=== PATIENT | female | born 1985 | race Hispanic/Latino ===

== ENCOUNTER 2019-12-14 16:38 | Emergency (ER) | payer SELFPAY ==
--- NOTE | 2019-12-14 18:35 | ER ---
Nurse's Notes [facility] Name: Elizabeth Rivas Age: 34 yrs Sex: Female : 1985 Arrival Date: 12/14/2019 Time: 16:41 Bed 2 Private MD: Diagnosis: Acute bronchitis, unspecified;Acute pharyngitis, unspecified Presentation: 12/14 16:55 Presenting complaint: Patient states: Cough, congestion, fever and chills started last ca1 night. Temp today at 101.7F. Ibuprofen taken at 1350. Transition of care: patient was not received from another setting of care. Onset of symptoms was December 14, 2019. Risk Assessment: Do you want to hurt yourself or someone else? Patient reports no desire to harm self or others. Initial Sepsis Screen: Does the patient meet any 2 criteria? No. Patient's initial sepsis screen is negative. Does the patient have a suspected source of infection? No. Patient's initial sepsis screen is negative. Care prior to arrival: None. 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 - Coronavirus screen:: The patient has NOT traveled to [place] in the past 14 days. The patient has NOT had contact with known/suspected case of Coronavirus?. - Social history:: Smoking status: Patient denies any tobacco usage or history of. - Ebola Screening: : Patient negative for fever greater than or equal to 101.5 degrees Fahrenheit, and additional compatible Ebola Virus Disease symptoms Patient denies exposure to infectious person Patient denies travel to an Ebola-affected area in the 21 days before illness onset No symptoms or risks identified at this time. Screenin:29 Abuse screen: Denies threats or abuse. Nutritional screening: No deficits noted. Tuberculosis screening: No symptoms or risk factors identified. Fall Risk None identified. Assessment: 17:25 General: Appears in no apparent distress. Behavior is calm, cooperative. General: ah Reports chills for fever for highest temp of 101.7, started last night. Pain: Denies pain. Neuro: Level of Consciousness is awake, alert, Oriented to person, place, time, situation, Global Human Resources Director are equal bilaterally. Cardiovascular: Heart tones S1 S2 present Capillary refill < 3 seconds. Respiratory: Airway is patent Respiratory effort is even, unlabored, Respiratory pattern is regular, symmetrical, Breath sounds are clear bilaterally. Respiratory: Reports cough that is productive. GI: No signs and/or symptoms were reported involving the gastrointestinal system. Abdomen is non-distended, Bowel sounds present X 4 quads. Abd is soft and non tender X 4 quads. :. EENT:. Derm: Skin is intact, is healthy with good turgor, Skin is dry. 18:18 Reassessment: Patient appears in no apparent distress at this time. Patient and/or ah family updated on plan of care and expected duration. Pain level reassessed. Patient is alert, oriented x 3, equal unlabored respirations, skin warm/dry/pink. Vital Signs: 16:57 BP 128 / 72; Pulse 110; Resp 15 S; Temp 99.5(O); Pulse Ox 98% on R/A; Weight 117.93 kg ca1 (R); Height 5 ft. 2 in. (157.48 cm) (R); 18:28 BP 138 / 82; Pulse 91; Resp 16; Temp 98.5; Pulse Ox 98% ; ah 16:57 Body Mass Index 47.55 (117.93 kg, 157.48 cm) ca1 ED Course: 16:41 Patient arrived in ED. rg4 16:55 Kayleen Copeland FNP-C [facility]. snw 16:55 Avery Willson MD is Attending Physician. snw 16:56 Triage completed. ca1 16:57 Arm band placed on right wrist. ca1 17:25 Trang Aguilera, RN is Primary Nurse. ah 17:25 Trang Aguilera, RN is Primary Nurse. 17:29 Bed in low position. Call light in reach. Adult w/ patient. ah 17:47 Strep Sent. sv 17:47 Flu Sent. sv 18:35 No provider procedures requiring assistance completed. Patient did not have IV access during this emergency room visit. Administered Medications: 18:35 Drug: Decadron 8 mg Route: PO; 18:40 Follow up: Response: Medication administered at discharge. Outcome: 18:30 Discharge ordered by . snw 18:35 Condition: good 18:35 Discharge instructions given to patient, Instructed on discharge instructions, medication usage. 18:35 Discharged to home ambulatory. 18:44 Patient left the ED. Signatures: Merry Bundy, RN RN Kayleen Copeland, REGISTRY RN-C REGISTRY RN-CsnKristal Champagne rg4 Damaris Brooke RN RN [facility] Trang Aguilera RN RN
[2019-12-14] MEDS ORDERED: dexAMETHasone 4 MG TAB ONE (18:36)
--- NOTE | 2019-12-14 18:36 | EDPHYS ---
Physician Documentation [facility] Name: Elizabeth Rivas Age: 34 yrs Sex: Female : 1985 Arrival Date: 12/14/2019 Time: 16:41 Bed 2 Private MD: ED Physician Avery Willson HPI: 12/14 17:45 This 34 yrs old Female presents to ER via Ambulatory with complaints of Flu snw Symptoms. 17:45 Onset: The symptoms/episode began/occurred suddenly, last night. Associated signs and snw symptoms: Pertinent positives: congestion, cough, fever, nasal discharge, sore throat. Modifying factors: The patient symptoms are alleviated by nothing. The patient has not experienced similar symptoms in the past, but family has similar symptoms, sister, nephew. It is unknown whether or not the patient has recently seen a physician. 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 - Coronavirus screen:: The patient has NOT traveled to [place] in the past 14 days. The patient has NOT had contact with known/suspected case of Coronavirus?. - Social history:: Smoking status: Patient denies any tobacco usage or history of. - Ebola Screening: : Patient negative for fever greater than or equal to 101.5 degrees Fahrenheit, and additional compatible Ebola Virus Disease symptoms Patient denies exposure to infectious person Patient denies travel to an Ebola-affected area in the 21 days before illness onset No symptoms or risks identified at this time. ROS: 17:43 Eyes: Negative for injury, pain, redness, and discharge. snw 17:43 Neck: Negative for injury, pain, and swelling, Cardiovascular: Negative for chest pain, palpitations, and edema. 17:43 Abdomen/GI: Negative for abdominal pain, nausea, vomiting, diarrhea, and constipation, Back: Negative for injury and pain, : Negative for injury, bleeding, discharge, and swelling, MS/Extremity: Negative for injury and deformity, Skin: Negative for injury, rash, and discoloration, Neuro: Negative for headache, weakness, numbness, tingling, and seizure, Psych: Negative for depression, anxiety, suicide ideation, homicidal ideation, and hallucinations. 17:43 Constitutional: Positive for body aches, fever, malaise. 17:43 ENT: Positive for nasal discharge, sore throat. 17:43 Respiratory: Positive for cough. Exam: 17:43 Constitutional: This is a well developed, well nourished patient who is awake, alert, snw and in no acute distress. Head/Face: Normocephalic, atraumatic. Eyes: Pupils equal round and reactive to light, extra-ocular motions intact. Lids and lashes normal. Conjunctiva and sclera are non-icteric and not injected. Cornea within normal limits. Periorbital areas with no swelling, redness, or edema. ENT: Nares patent. No nasal discharge, no septal abnormalities noted. Tympanic membranes are normal (mild erythema to right) and external auditory canals are clear. Oropharynx with no redness, swelling, or masses, exudates, or evidence of obstruction, uvula midline. Mucous membranes moist. Neck: Trachea midline, no thyromegaly or masses palpated, and no cervical lymphadenopathy. Supple, full range of motion without nuchal rigidity, or vertebral point tenderness. No Meningismus. Chest/axilla: Normal chest wall appearance and motion. Nontender with no deformity. No lesions are appreciated. Cardiovascular: Regular rate and rhythm with a normal S1 and S2. No gallops, murmurs, or rubs. Normal PMI, no JVD. No pulse deficits. Respiratory: Lungs have equal breath sounds bilaterally, clear to auscultation and percussion. No rales, rhonchi or wheezes noted. No increased work of breathing, no retractions or nasal flaring. Abdomen/GI: Soft, non-tender, with normal bowel sounds. No distension or tympany. No guarding or rebound. No evidence of tenderness throughout. Back: No spinal tenderness. No costovertebral tenderness. Full range of motion. Skin: Warm, dry with normal turgor. Normal color with no rashes, no lesions, and no evidence of cellulitis. MS/ Extremity: Pulses equal, no cyanosis. Neurovascular intact. Full, normal range of motion. Neuro: Awake and alert, GCS 15, oriented to person, place, time, and situation. Cranial nerves II-XII grossly intact. Motor strength 5/5 in all extremities. Sensory grossly intact. Cerebellar exam normal. Normal gait. Psych: Awake, alert, with orientation to person, place and time. Behavior, mood, and affect are within normal limits. Vital Signs: 16:57 BP 128 / 72; Pulse 110; Resp 15 S; Temp 99.5(O); Pulse Ox 98% on R/A; Weight 117.93 kg ca1 (R); Height 5 ft. 2 in. (157.48 cm) (R); 18:28 BP 138 / 82; Pulse 91; Resp 16; Temp 98.5; Pulse Ox 98% ; ah 16:57 Body Mass Index 47.55 (117.93 kg, 157.48 cm) ca1 MDM: 17:20 Patient medically screened. snw 18:32 Data reviewed: vital signs, nurses notes. Data interpreted: Pulse oximetry: on room air snw is 98 %. Interpretation: normal. Counseling: I had a detailed discussion with the patient and/or guardian regarding: the historical points, exam findings, and any diagnostic results supporting the discharge/admit diagnosis, lab results, the need for outpatient follow up, to return to the emergency department if symptoms worsen or persist or if there are any questions or concerns that arise at home. Special discussion: Based on the history and exam findings, there is no indication for further emergent testing or inpatient evaluation. I discussed with the patient/guardian the need to see the primary care provider for further evaluation of the symptoms. 12/14 16:58 Order name: Flu ca1 12/14 16:58 Order name: Strep ca1 Administered Medications: 18:35 Drug: Decadron 8 mg Route: PO; 18:40 Follow up: Response: Medication administered at discharge. Disposition: 12/15 07:04 Co-signature as Attending Physician, Avery Willson MD. rn Disposition: 12/14/19 18:30 Discharged to Home. Impression: Acute bronchitis, unspecified, Acute pharyngitis, unspecified. - Condition is Stable. - Discharge Instructions: Acute Bronchitis, Adult, Hypertension, Pharyngitis, Rehydration, Adult. - Prescriptions for Zyrtec 10 mg Oral Tablet - take 1 tablet by ORAL route once daily As needed; 20 tablet. Tessalon Perles 100 mg Oral Capsule - take 1 capsule by ORAL route every 8 hours As needed; 15 capsule. - Work release form, Medication Reconciliation Form, Thank You Letter, Antibiotic Education, Prescription Opioid Use form. - Follow up: Emergency Department; When: As needed; Reason: Worsening of condition. Follow up: Private Physician; When: 2 - 3 days; Reason: Recheck today's complaints, Continuance of care, Re-evaluation by your physician. Signatures: Dispatcher [employer] EDNM Kayleen Copeland, KESHAWN-Doug AGRICULTURE ENGINEER-Csnw Avery Willson MD MD rn Actimothy, Damaris RN RN [facility] Trang Aguilera RN RN Corrections: (The following items were deleted from the chart) 12/14 18:44 18:30 12/14/2019 18:30 Discharged to Home. Impression: Acute bronchitis, unspecified; ah Acute pharyngitis, unspecified. Condition is Stable. Forms are Medication Reconciliation Form, Thank You Letter, Antibiotic Education, Prescription Opioid Use. Follow up: Emergency Department; When: As needed; Reason: Worsening of condition. Follow up: Private Physician; When: 2 - 3 days; Reason: Recheck today's complaints, Continuance of care, Re-evaluation by your physician. snw
[2019-12-14 19:19] VITALS: O2SAT 98
[2019-12-14 19:20] VITALS: BP 138/82; TEMP 98.5
== END 2019-12-14 18:44 | disposition home or self-care (01) ==
LOC: ER 16:38
DX: J20.9 Acute bronchitis, unspecified (principal); J02.9 Acute pharyngitis, unspecified
CPT/HCPCS: 87070; 87081; 87804; 99283; J8540

== ENCOUNTER 2020-12-23 11:44 | Emergency (ER) | payer SELFPAY ==
--- OUTSIDE RECORDS SUMMARY | 2020-12-23 11:47 | XMS REPORT | Continuity of Care Document ---
:1985 Author Organization [facility] t Address [address] [place] [address] Care Team Providers Name Role Phone Romaine STEWARD, Azeb Attending Clinician Unavailable Singer YEH Attending Clinician Problems This patient has no known problems. Allergies, Adverse Reactions, Alerts This patient has no known allergies or adverse reactions. Medications This patient has no known medications. Procedures This patient has no known procedures. Encounters Start End Encounter Admission Attending Care Care Encounter Source Date/Time Date/Time Type Type Clinicians Facility Department ID 2020-12-07 2020-12-07 Telephone PARAS Gavin [id number] 00:00:00 00:00:00 Isabelle PAINTING [id number] [facility] [id number] 2020-12-06 2020-12-06 Emergency FIORELLA Cole [id number] 08:57:00 09:56:00 Damon Gomez [id number] [place] [id number] [place] [id number] Results This patient has no known results.
[2020-12-23] MEDS ORDERED: KETOROLAC 30 MG/ML INJ ONE (12:34)
[2020-12-23] MEDS ORDERED: DIPHENHYDRAMINE 50 MG/ML VIAL ONE (12:34)
[2020-12-23] MEDS ORDERED: METOCLOPRAMIDE 10 MG/2mL INJ ONE (12:34)
[2020-12-23] MEDS ORDERED: NA CHLORIDE 0.9% 1,000 ML ONE (12:34)
--- NOTE | 2020-12-23 13:04 | RAD REPORT ---
EXAM DESCRIPTION: CT - Head Brain Wo Cont - 12/23/2020 12:57 pm CLINICAL HISTORY: HEADACHE Headache, drowsiness, nausea. COMPARISON: No comparisons TECHNIQUE: All CT scans are performed using dose optimization technique as appropriate and may inclu de automated exposure control or mA/KV adjustment according to patient size. FINDINGS: No intracranial hemorrhage, hydrocephalus or extra-axial fluid collection.No areas of brai n edema or evidence of midline shift. Left frontal and ethmoid air cells are opacified compatible with chronic left frontoethmoidal sinus d isease. The paranasal sinuses and mastoids are otherwise clear. The calvarium is intact. IMPRESSION: No acute intracranial abnormality. Chronic left frontoethmoidal sinus disease.
--- NOTE | 2020-12-23 13:56 | EDPHYS ---
Physician Documentation [facility] Name: Elizabeth Rivas Age: 35 yrs Sex: Female : 1985 Arrival Date: 12/23/2020 Time: 11:48 Bed 6 Private MD: ED Physician Addison Boyce HPI: 12/23 12:45 This 35 yrs old Female presents to ER via Ambulatory with complaints of pm1 Headache. 12:45 The patient complains of pain to the forehead - left side. The patient describes the pm1 headache as aching. Onset: The symptoms/episode began/occurred this morning. Associated signs and symptoms: The patient has no apparent associated signs or symptoms, Pertinent positives: nausea, vomiting, Pertinent negatives: fever. Severity of symptoms: in the emergency department the pain has improved, initially 10/10 pain, a " 7" out of "10". Headache History: Denies prior headaches. The symptoms are alleviated by over the counter pain medication, OTC NSAIDS. The patient has not experienced similar symptoms in the past. The patient has been recently seen by a physician: dental extraction on right lower molar 3 days ago. Currently taking amoxicillin. Historical: - Allergies: 11:56 No Known Allergies; hb - Home Meds: 11:56 None [Active]; hb - PMHx: 11:56 Asthma; hb - PSHx: 11:56 Cholecystectomy; ; hb - Immunization history:: Adult Immunizations up to date. - Social history:: Smoking status: Patient denies any tobacco usage or history of. ROS: 12:45 Constitutional: Negative for fever, chills, and weight loss. pm1 12:45 Cardiovascular: Negative for chest pain, palpitations, and edema, Respiratory: Negative for shortness of breath, cough, wheezing, and pleuritic chest pain. 12:45 Back: Negative for injury and pain, MS/Extremity: Negative for injury and deformity, Skin: Negative for injury, rash, and discoloration. 12:45 ENT: Positive for dental pain, post dental extraction. Left eye tearing with headache, Negative for drainage from ear(s), ear pain. 12:45 Abdomen/GI: Positive for nausea and vomiting, Negative for abdominal pain, diarrhea, constipation. 12:45 Neuro: Positive for headache, Negative for numbness, tingling, weakness. Exam: 12:45 Constitutional: This is a well developed, well nourished patient who is awake, alert, pm1 and in no acute distress. 12:45 Eyes: Pupils equal round and reactive to light, extra-ocular motions intact. Lids and lashes normal. Conjunctiva and sclera are non-icteric and not injected. Cornea within normal limits. Periorbital areas with no swelling, redness, or edema. Neck: Trachea midline, no thyromegaly or masses palpated, and no cervical lymphadenopathy. Supple, full range of motion without nuchal rigidity, or vertebral point tenderness. No Meningismus. 12:45 Back: No spinal tenderness. No costovertebral tenderness. Full range of motion. Skin: Warm, dry with normal turgor. Normal color with no rashes, no lesions, and no evidence of cellulitis. MS/ Extremity: Pulses equal, no cyanosis. Neurovascular intact. Full, normal range of motion. 12:45 Head/face: Sinus tenderness, that is mild, is located over the left frontal sinus. 12:45 ENT: External ear(s): are unremarkable, Ear canal(s): are normal, TM's: are normal, Posterior pharynx: is normal, airway is patent, no erythema, no exudate, no peritonsilar mass, no pooling of secretions, no swelling, Dental exam: no dry socket present to left lower molar extraction. No gum swelling, no bleeding. 12:45 Cardiovascular: Exam negative for acute changes, Rate: normal, Rhythm: regular, Pulses: no pulse deficits are appreciated. 12:45 Respiratory: Exam negative for acute changes, respiratory distress, shortness of breath. 12:45 Neuro: Exam negative for acute changes, Orientation: is normal, Mentation: is normal, Motor: is normal, Gait: is steady. Vital Signs: 11:54 BP 154 / 87; Pulse 64; Resp 16; Temp 98.3; Pulse Ox 100% on R/A; Weight 117.93 kg; hb Height 5 ft. 2 in. (157.48 cm); Pain 8/10; 14:00 BP 142 / 82; Pulse 66; Resp 15; Pulse Ox 99% on R/A; hb 11:54 Body Mass Index 47.55 (117.93 kg, 157.48 cm) hb MDM: 11:59 Patient medically screened. paul 13:54 Data reviewed: vital signs. Data interpreted: Pulse oximetry: on room air is 100 %. pm1 Interpretation: normal. 13:54 Counseling: I had a detailed discussion with the patient and/or guardian regarding: the pm1 historical points, exam findings, and any diagnostic results supporting the discharge/admit diagnosis, radiology results, the need for outpatient follow up, an ENT specialist, evaluation and treatment of chronic sinusitis, to return to the emergency department if symptoms worsen or persist or if there are any questions or concerns that arise at home. 13:54 ED course: Patient's pain 4/10 with treatment in the ER and she is happy with the care pm1 received and is ready to go home. Patient is currently on day 3 of her amoxicillin from tooth extraction. Explained to patient to follow up with ENT and continue current abx therapy. 12/23 13:27 Order name: Urine Dipstick--Ancillary (enter results) 12/23 13:27 Order name: Urine --Ancillary (enter results) 12/23 12:12 Order name: CT Head Brain wo Cont; Complete Time: 13:09 pm1 12/23 12:12 Order name: IV Saline Lock; Complete Time: 12:22 pm1 12/23 13:02 Order name: Urine Test (obtain specimen); Complete Time: 13:15 pm1 12/23 13:02 Order name: Urine Dipstick-Ancillary (obtain specimen); Complete Time: 13:15 pm1 Administered Medications: 12:22 Drug: TORadol - Ketorolac 15 mg Route: IVP; Site: right antecubital; hb 13:02 Follow up: Response: No adverse reaction ph 12:22 Drug: NS 0.9% 1000 ml Route: IV; Rate: 1000 ml; Site: right antecubital; hb 13:34 Follow up: Response: No adverse reaction; IV Status: Completed infusion; IV Intake: hb 1000ml 12:23 Drug: Reglan 10 mg Route: IVP; Site: right antecubital; hb 13:03 Follow up: Response: No adverse reaction ph 12:23 Drug: Benadryl 25 mg Route: IVP; Site: right antecubital; hb 13:02 Follow up: Response: No adverse reaction ph Disposition: 12/23/20 13:55 Discharged to Home. Impression: Headache, Chronic frontal sinusitis. - Condition is Stable. - Discharge Instructions: General Headache Without Cause, Sinus Headache. - Prescriptions for Zofran ODT 4 mg Oral tablet,disintegrating - place 1 tablet by TRANSLINGUAL route every 8 hours As needed; 20 tablet. Fiorinal 50- 325-40 mg Oral Capsule - take 1 capsule by ORAL route every 4 hours As needed - not to exceed 6 capsules per day; 20 capsule. - Medication Reconciliation Form, Thank You Letter, Antibiotic Education, Prescription Opioid Use form. - Follow up: Emergency Department; When: As needed; Reason: Worsening of condition. Follow up: Private Physician; When: 2 - 3 days; Reason: Recheck today's complaints, Continuance of care, Re-evaluation by your physician. - Problem is new. - Symptoms have improved. Addendum: 12/25/2020 06:09 Co-signature as Attending Physician, Addison Boyce MD I agree with the assessment and c ledesma plan of care. Signatures: Dispatcher [employer] EDAK Addison Boyce MD MD cha Marinas, Patrick, BHAVYA BUSINESS BANKING MANAGER pm1 Esthela Canseco, BIN RN Kaitlin Vance RN ph Corrections: (The following items were deleted from the chart) 12/23 14:22 13:55 12/23/2020 13:55 Discharged to Home. Impression: Headache; Chronic frontal hb sinusitis. Condition is Stable. Forms are Medication Reconciliation Form, Thank You Letter, Antibiotic Education, Prescription Opioid Use. Follow up: Emergency Department; When: As needed; Reason: Worsening of condition. Follow up: Private Physician; When: 2 - 3 days; Reason: Recheck today's complaints, Continuance of care, Re-evaluation by your physician. Problem is new. Symptoms have improved. pm1
--- NOTE | 2020-12-23 13:56 | ER ---
Nurse's Notes [facility] Name: Elizabeth Rivas Age: 35 yrs Sex: Female : 1985 Arrival Date: 12/23/2020 Time: 11:48 Bed 6 Private MD: Diagnosis: Headache;Chronic frontal sinusitis Presentation: 12/23 11:54 Chief complaint: Frontal headache and nausea upon waking today. On amoxicillin day 3 hb for teeth. Coronavirus screen: Client presents with at least one sign or symptom that may indicate coronavirus-19. Provider contacted for isolation considerations. Ebola Screen: No symptoms or risks identified at this time. Initial Sepsis Screen: Does the patient meet any 2 criteria? No. Patient's initial sepsis screen is negative. Does the patient have a suspected source of infection? No. Patient's initial sepsis screen is negative. Risk Assessment: Do you want to hurt yourself or someone else? Patient reports no desire to harm self or others. Onset of symptoms was December 23, 2020. Care prior to arrival: Medication(s) given: Motrin. 11:54 Method Of Arrival: Ambulatory hb 11:54 Acuity: MARGARITA 3 hb Triage Assessment: 11:56 Headache History: Denies prior headaches. General: Appears in no apparent distress. hb Behavior is calm, cooperative. Pain: Pain currently is 8 out of 10 on a pain scale. EENT: No signs and/or symptoms were reported regarding the EENT system. Neuro: Level of Consciousness is awake, alert, obeys commands, Oriented to person, place, time, situation, Reports headache. Cardiovascular: Capillary refill < 3 seconds Patient's skin is warm and dry. Respiratory: Respiratory effort is even, unlabored, Respiratory pattern is regular, symmetrical. GI: Reports nausea. : No signs and/or symptoms were reported regarding the genitourinary system. Derm: Skin is pink, warm \T\ dry. Musculoskeletal: No signs and/or symptoms reported regarding the musculoskeletal system. Historical: - Allergies: 11:56 No Known Allergies; hb - Home Meds: 11:56 None [Active]; hb - PMHx: 11:56 Asthma; hb - PSHx: 11:56 Cholecystectomy; ; hb - Immunization history:: Adult Immunizations up to date. - Social history:: Smoking status: Patient denies any tobacco usage or history of. Screenin:57 Abuse screen: Denies threats or abuse. Denies injuries from another. Nutritional hb screening: No deficits noted. Tuberculosis screening: No symptoms or risk factors identified. Fall Risk None identified. Assessment: 11:57 General: see triage assessment . hb 13:09 Reassessment: Patient appears in no apparent distress at this time. Patient and/or hb family updated on plan of care and expected duration. Pain level reassessed. Patient is alert, oriented x 3, equal unlabored respirations, skin warm/dry/pink. 14:10 Reassessment: Patient appears in no apparent distress at this time. Patient and/or hb family updated on plan of care and expected duration. Pain level reassessed. Patient is alert, oriented x 3, equal unlabored respirations, skin warm/dry/pink. Patient states feeling better. Patient states symptoms have improved. Vital Signs: 11:54 BP 154 / 87; Pulse 64; Resp 16; Temp 98.3; Pulse Ox 100% on R/A; Weight 117.93 kg; hb Height 5 ft. 2 in. (157.48 cm); Pain 8/10; 14:00 BP 142 / 82; Pulse 66; Resp 15; Pulse Ox 99% on R/A; hb 11:54 Body Mass Index 47.55 (117.93 kg, 157.48 cm) hb ED Course: 11:48 Patient arrived in ED. mr 11:54 Esthela Canseco, RN is Primary Nurse. hb 11:56 Triage completed. hb 11:57 Alex Dallas, BHAVYA is PHCP. pm1 11:57 Addison Boyce MD is Attending Physician. pm1 11:57 Arm band placed on. hb 11:57 Patient has correct armband on for positive identification. Bed in low position. Call hb light in reach. Side rails up X 1. 12:18 Inserted saline lock: 20 gauge in right antecubital area, using aseptic technique. dh3 12:57 CT Head Brain wo Cont In Process Unspecified. EDMS 14:22 No provider procedures requiring assistance completed. IV discontinued, intact, hb bleeding controlled, No redness/swelling at site. Administered Medications: 12:22 Drug: TORadol - Ketorolac 15 mg Route: IVP; Site: right antecubital; hb 13:02 Follow up: Response: No adverse reaction ph 12:22 Drug: NS 0.9% 1000 ml Route: IV; Rate: 1000 ml; Site: right antecubital; hb 13:34 Follow up: Response: No adverse reaction; IV Status: Completed infusion; IV Intake: hb 1000ml 12:23 Drug: Reglan 10 mg Route: IVP; Site: right antecubital; hb 13:03 Follow up: Response: No adverse reaction ph 12:23 Drug: Benadryl 25 mg Route: IVP; Site: right antecubital; hb 13:02 Follow up: Response: No adverse reaction ph Intake: 13:34 IV: 1000ml; Total: 1000ml. hb Outcome: 13:55 Discharge ordered by MD. pm1 14:22 Discharged to home ambulatory. hb 14:22 Condition: stable 14:22 Discharge instructions given to patient, Instructed on discharge instructions, follow up and referral plans. medication usage, Demonstrated understanding of instructions, follow-up care, medications, Prescriptions given X 2. 14:22 Patient left the ED. Signatures: Dispatcher [employer] Renita Baires Patricia RN RN Alex Steel, BHAVYA BUTCHER pm1 Esthela Canseco RN RN Elsie Pinedo 3
[2020-12-23 14:28] VITALS: TEMP 98.3
[2020-12-23 14:30] VITALS: BP 142/82; O2SAT 99
[2020-12-23 16:45] LABS: Urine Blood TRACE (NEG); Urine Glucose NEGATIVE (NEG); Urine Protein NEGATIVE (NEG); Urine Specific Gravity 1.015 (1.005-1.030); Urine pH 6.5 (5.0-7.0)
== END 2020-12-23 14:22 | disposition home or self-care (01) ==
LOC: ER 11:44
DX: J32.1 Chronic frontal sinusitis (principal); Z98.890 Other specified postprocedural states
CPT/HCPCS: 70450; 81003; 81025; 96361; 96374; 96375; 99284; J1200; J2765; J7030

== ENCOUNTER 2022-11-28 19:45 | Emergency (ER) | payer SELFPAY ==
--- OUTSIDE RECORDS SUMMARY | 2022-11-28 19:49 | XMS REPORT | Continuity of Care Document ---
:1985 Author Organization [facility] t Address [address] [place] [address] Care Team Providers Name Role Phone Romaine STEWARD, Isabelle Bowie Attending Clinician Unavailable Damon Cole DO Attending Clinician Payers Payer Name Policy Type Policy Number Effective Date Expiration Date S ource Problems Condition Condition Condition Status Onset Resolution Last Treating Co mments Source Name Details Category Date Date Treatment Clinician Date Acute Acute Disease Active 2014-10 [facility] post-opera post-opera 0-23 [place] [facility] Abdominal Abdominal Disease Active 2014-10 Uni vers pain, pain, 0-21 [place] abdominal abdominal Bran ch location location Acute Acute Disease Active 2014-10 [facility] calculous calculous 0-21 [place] of cholecy[place]olecysti [place] [facility] Allergies, Adverse Reactions, Alerts Allergy Allergy Status Severity Reaction(s) Onset Inactive Treating Comm ents Source Name Type Date Date Clinician NO KNOWN Drug Active Univers ALLERGIE Class ity of S [place] [facility] Social History Social Habit Start Date Stop Date Quantity Comments Source Sex Assigned At [facility] Branch Exposure to Not sure [facility] SARS-CoV-2 (event) Medica l Branch Alcohol intake 2015-08-29 2015-08-29 [facility] 00:00:00 00:00:00 [facility] Smoking Status Start Date Stop Date Source Former smoker 2015-08-29 00:00:00 2015-08-29 00:00:00 [facility] [place] [facility] Medications Ordered Filled Start Stop Current Ordering Indication Dosage Frequency Signature Comments Components Source Medication Medication Date Date Medication? Clinician (SIG) Name Name benzonatate Yes [id number] 100mg Take 1 Univers 100 mg 2-10 capsule by ity of capsule 00:00: mouth 3 [place] 00 (three) Medical times Branch daily as needed for Cough. chlorphenir Yes [id number] 4mg Take 1 Univers amine 4 mg 2-10 tablet by ity of tablet 00:00: mouth [place] 00 every 6 Medical (six) Branch hours as needed for Allergies or Runny nose. multivitami Yes [id number] 1{capsu Take 1 Univers n capsule 2-10 le} capsule by ity of 00:00: mouth [place] 00 daily. Medical Branch calcium-mag Yes [id number] Take as Univers nesium-zinc 2-10 directed ity of 333-133-8.3 00:00: for daily [place] mg Tab 00 dose. Medical Branch benzonatate Yes [id number] 100mg Take 1 Univers 100 mg 2-10 capsule by ity of capsule 00:00: mouth 3 [place] 00 (three) Medical times Branch daily as needed for Cough. chlorphenir Yes [id number] 4mg Take 1 Univers amine 4 mg 2-10 tablet by ity of tablet 00:00: mouth [place] 00 every 6 Medical (six) Branch hours as needed for Allergies or Runny nose. multivitami Yes [id number] 1{capsu Take 1 Univers n capsule 2-10 le} capsule by ity of 00:00: mouth [place] 00 daily. Medical Branch calcium-mag Yes [id number] Take as Univers nesium-zinc 2-10 directed ity of 333-133-8.3 00:00: for daily [place] mg Tab 00 dose. Medical Branch cyclobenzap 2014-10 Yes 10mg Take 10 mg Univers rine 1-03 by mouth 3 ity of (FLEXERIL) 14:52: (three) [place] 10 mg 59 times Medical tablet daily. Branch cyclobenzap 2014-10 Yes 10mg Take 10 mg Univers rine 1-03 by mouth 3 ity of (FLEXERIL) 14:52: (three[place] 10 mg 59 times Medical tablet daily. Branch acetaminoph 2014-10 Yes 1{tbl} Take 1 Tab Univers en-codeine 0-24 by mouth ity o f (TYLENOL 00:00: every 4 [place] #3) 300-30 00 (four) Medical mg tablet hours as Branch needed for Pain (scale 4-6) or Pain (scale 7-10). ibuprofen 2014-10 Yes 800mg Take 1 Tab U nivers (MOTRIN) 0-24 by mouth ity of 800 mg 00:00: every 6 [place] tablet 00 (six) Medical hours as Branch needed for Pain (scale 1-3) or Pain (scale 4-6). acetaminoph 2014-10 Yes 1{tbl} Take 1 Tab Univers en-codeine 0-24 by mouth ity o f (TYLENOL 00:00: every 4 [place] #3) 300-30 00 (four) Medical mg tablet hours as Branch needed for Pain (scale 4-6) or Pain (scale 7-10). ibuprofen 2014-10 Yes 800mg Take 1 Tab U nivers (MOTRIN) 0-24 by mouth ity of 800 mg 00:00: every 6 [place] tablet 00 (six) Medical hours as Branch needed for Pain (scale 1-3) or Pain (scale 4-6). omeprazole 2014-10 Yes 40mg Take 1 Cap U nivers (PRILOSEC) 0-21 by mouth ity o f 40 mg 00:00: daily. [place] capsule 00 Medical Branch ondansetron 2014-10 Yes 4mg Take 1 Tab Univers (ZOFRAN, 0-21 by mouth ity of HYDROCHLORI 00:00: every 8 [place] as [place],) 4 mg 00 (eight) Medical tablet hours as Branch needed for Nausea and Vomiting (N/V). omeprazole 2014-10 Yes 40mg Take 1 Cap U nivers (PRILOSEC) 0-21 by mouth ity o f 40 mg 00:00: daily. [place] capsule Medical Branch ondansetron 2014-10 Yes 4mg Take 1 Tab Univers (ZOFRAN, 0-21 by mouth ity of HYDROCHLORI 00:00: every 8 [place] as [place],) 4 mg 00 (eight) Medical tablet hours as Branch needed for Nausea and Vomiting (N/V). Vital Signs Vital Name Observation Time Observation Value Comments Source Systolic blood 2020-12-06 14:56:00 131 mm[Hg] Univer sity of pressure [place] [facility] Diastolic blood 2020-12-06 14:56:00 79 mm[Hg] Unive rsity of pressure [place] [facility] Heart rate 2020-12-06 14:56:00 85 /min [facility] [place] [facility] Body temperature 2020-12-06 14:56:00 36.67 Caitlin Univ ersity of [place] [facility] Respiratory rate 2020-12-06 14:56:00 14 /min Univ ers[facility] [place] [facility] Body height 2020-12-06 14:56:00 157.5 cm [facility] [place] [facility] Body weight 2020-12-06 14:56:00 122.471 kg [facility] [place] [facility] BMI 2020-12-06 14:56:00 49.38 kg/m2 [facility] [place] [facility] Oxygen saturation in 2020-12-06 14:56:00 100 /min University of Arterial blood by [place] [employer] lalo Pulse oximetry Branch Systolic blood 2020-12-06 14:56:00 131 mm[Hg] Univer sity of pressure [place] [facility] Diastolic blood 2020-12-06 14:56:00 79 mm[Hg] Unive rsity of pressure [place] [facility] Heart rate 2020-12-06 14:56:00 85 /min [facility] [place] [facility] Body temperature 2020-12-06 14:56:00 36.67 Caitlin Univ ers[facility] [place] [facility] Respiratory rate 2020-12-06 14:56:00 14 /min Univ ers[facility] [place] [facility] Body height 2020-12-06 14:56:00 157.5 cm [facility] [place] [facility] Body weight 2020-12-06 14:56:00 122.471 kg [facility] [place] [facility] BMI 2020-12-06 14:56:00 49.38 kg/m2 [facility] [place] [facility] Oxygen saturation in 2020-12-06 14:56:00 100 /min University of Arterial blood by [place] [employer] lalo Pulse oximetry Branch Procedures Procedure Date / Time Performed Performing Clinician [facility] e NOTICE OF PRIVACY 2020-12-06 14:48:27 [facility] Unassigned, [facility] Branch CONSENT/REFUSAL FOR 2020-12-06 14:47:29 [facility] Un[facility], [facility] AND Name Medical Branch TREATMENT Encounters Start End Encounter Admission Attending Care Care Encounter Source Date/Time Date/Time Type Type Clinicians Facility Department ID 2020-12-07 2020-12-07 Telephone PARAS Gavin [id number] Univers 00:00:00 00:00:00 Isabelle PAINTING [id number] i ty of [facility] [id number] [place] [id number] [place] 019 Branch 2020-12-07 2020-12-07 Telephone PARAS Gavin [id number] 00:00:00 00:00:00 Isabelle PAINTING [id number] 2020-12-06 2020-12-06 Emergency Cole, [facility] [id number] 08:57:00 09:56:00 Damon Gomez [id number] [place] [id number] [place] [id number] 08 2020-12-06 2020-12-06 Emergency Cole, [facility] [id number] [facility] 08:57:00 09:56:00 Damon Gomez [id number] i ty of [place] [id number] [facility] [id number] [place] [id number] [place] 2020-12-06 2020-12-[address] [facility] ERT [id number] Univers 08:48:00 08:48:00 ity of [place] [facility] Results This patient has no known results.
[2022-11-28] MEDS ORDERED: MAGNES/ALUMIN/SIMET 30ML UCUP ONE (20:35)
[2022-11-28] MEDS ORDERED: LIDOCAINE VISCOUS 2% SOLN 15 ML UDC ONE (20:35)
[2022-11-28 20:42] LABS: Absolute Lymphocytes (CBC) 3.4 K/uL (0.7-4.9); Hematocrit 34.4 % (36.0-45.0); Lymphocytes % 33.1 % (15.3-44.8); MCV 81.2 fL (80-100); MPV 8.2 fL (7.6-11.3); RBC Red Blood Cell Count 4.24 M/uL (3.86-4.86)
[2022-11-28 21:07] LABS: ALT/SGPT 22 U/L (13-56); AST/SGOT 18 U/L (15-37); Albumin 3.5 g/dL (3.4-5.0); Alkaline Phosphatase 90 U/L (45-117); BUN Blood Urea Nitrogen 15 mg/dL (7-18); Bicarbonate 27 mmol/L (21-32); Bilirubin Total 0.1 mg/dL (0.2-1.0); Glomerular Filtration Rate 97 ml/min (=/>90); Glucose Level 114 mg/dL (74-106); Lipase 138 U/L (73-393); Potassium 3.7 mmol/L (3.5-5.1); Protein, Total 8.4 g/dL (6.4-8.2); Sodium Level 137 mmol/L (136-145)
[2022-11-28 21:36] LABS: Troponin High Sensitivity < 3.0 pg/mL (<58.9)
--- NOTE | 2022-11-28 21:58 | EDPHYS ---
Physician Documentation [facility] Name: Elizabeth Rivas Age: 37 yrs Sex: Female : 1985 Arrival Date: 11/28/2022 Time: 19:47 Bed 16 Private MD: ED Physician Jaiden Barraza HPI: 11/28 23:46 This 37 yrs old Female presents to ER via Ambulatory with complaints of Chest rt Pain. 23:46 Patient presents to the ED with 3 days of epigastric to chest pain that occurs only rt when she eats or drinks. She states that she has tried reflux medications that have not improved her symptoms. She denies other acute complaints at this time. Denies shortness of breath, near syncope. Symptoms are moderate in severity, no other aggravating or elevating factors.. 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 - Social history:: Smoking status: Patient denies any tobacco usage or history of. - Family history:: not pertinent. ROS: 11/29 00:20 Constitutional: Negative for fever, chills, and weight loss, Respiratory: Negative for rt shortness of breath, cough, wheezing, and pleuritic chest pain, Abdomen/GI: Negative for abdominal pain, nausea, vomiting, diarrhea, and constipation, Skin: Negative for injury, rash, and discoloration, Neuro: Negative for headache, weakness, numbness, tingling, and seizure, Psych: Negative for depression, anxiety, suicide ideation, homicidal ideation, and hallucinations. Cardiovascular: Positive for chest pain, Negative for edema. Exam: 00:20 Constitutional: This is a well developed, well nourished patient who is awake, alert, rt and in no acute distress. Head/Face: Normocephalic, atraumatic. Chest/axilla: Normal chest wall appearance and motion. Nontender with no deformity. No lesions are appreciated. Cardiovascular: Regular rate and rhythm with a normal S1 and S2. No gallops, murmurs, or rubs. Normal PMI, no JVD. No pulse deficits. Respiratory: Lungs have equal breath sounds bilaterally, clear to auscultation and percussion. No rales, rhonchi or wheezes noted. No increased work of breathing, no retractions or nasal flaring. Abdomen/GI: Soft, non-tender, with normal bowel sounds. No distension or tympany. No guarding or rebound. No evidence of tenderness throughout. Skin: Warm, dry with normal turgor. Normal color with no rashes, no lesions, and no evidence of cellulitis. MS/ Extremity: Pulses equal, no cyanosis. Neurovascular intact. Full, normal range of motion. Neuro: Awake and alert, GCS 15, oriented to person, place, time, and situation. Cranial nerves II-XII grossly intact. Motor strength 5/5 in all extremities. Sensory grossly intact. Cerebellar exam normal. Normal gait. Psych: Awake, alert, with orientation to person, place and time. Behavior, mood, and affect are within normal limits. 00:20 ECG was reviewed by the Attending Physician. 00:20 Abdomen/GI: Minimal epigastric tenderness without rebound, guarding, distention. Vital Signs: 11/28 19:49 BP 123 / 56; Pulse 72; Resp 16; Temp 98; Pulse Ox 100% on R/A; Weight 117.93 kg; Height kd3 5 ft. 2 in. (157.48 cm); Pain 8/10; 21:45 BP 108 / 56; Pulse 85; Resp 16; Pulse Ox 100% on R/A; jb4 19:49 Body Mass Index 47.55 (117.93 kg, 157.48 cm) kd3 MDM: 20:20 Patient medically screened. rt 11/29 00:20 Differential diagnosis: acute myocardial infarction, gastroesophageal reflux disease rt (GERD), pancreatitis, pneumonia, pneumothorax. HEART Score: History: Slightly Suspicious (0), ECG: Normal (0), Age: < or = 45 years (0), Risk Factors: No Risk Factors Known (0), Troponin: < or = 1 x Normal Limit (0), Total Score = 0. Data reviewed: vital signs, nurses notes, EKG, radiologic studies. I considered the following discharge prescriptions or medication management in the emergency department Medications were administered in the Emergency Department. See MAR. Test considered but Not performed: X-ray: Lungs clear, x-ray not indicated. CT: Benign abdominal examination, normal labs, CT not indicated. Response to treatment: the patient's symptoms have resolved after treatment. 11/28 20:27 Order name: CBC with Diff; Complete Time: 21:45 rt 11/28 20:27 Order name: CMP; Complete Time: 21:45 rt 11/28 20:27 Order name: Lipase; Complete Time: 21:45 rt 11/28 20:27 Order name: Troponin High Sensitivity; Complete Time: 21:45 rt 11/28 20:27 Order name: EKG - Nurse/Tech; Complete Time: 20:36 rt EC:20 Rate is 62 beats/min. Rhythm is regular, Normal Sinus Rhythm with No ectopy. QRS [place] rt is Normal. PA interval is normal. QRS interval is normal. QT interval is normal. No Q waves. T waves are Normal. No ST changes noted. Clinical impression: Normal ECG. Interpreted by me. Administered Medications: 11/28 20:43 Drug: GI Cocktail without - (Maalox Suspension 30 ml, Lidocaine Liquid 2 % 15 jb4 ml) Route: PO; Disposition Summary: 11/28/22 21:57 Discharge Ordered Location: Home rt Problem: new rt Symptoms: have improved rt Condition: Stable rt Diagnosis - Acute gastritis without bleeding rt Followup: rt - With: Private Physician - When: 2 - 3 days - Reason: Discharge Instructions: - Discharge Summary Sheet rt - Gastritis, Adult rt Forms: - Medication Reconciliation Form rt - Thank You Letter rt - Antibiotic Education rt - Prescription Opioid Use rt Prescriptions: - Carafate 1 gram Oral Tablet - take 1 tablet by ORAL route 4 times per day; 30 tablet; Refills: 0, Product rt Selection Permitted - Protonix 40 mg Oral Tablet - take 1 tablet by ORAL route once daily; 30 tablet; Refills: 0, Product rt Selection Permitted Signatures: Dispatcher [employer] EDAdryan Morales RN RN jb4 Lydia Fierro RN RN kd3 Jaiden Barraza MD MD rt Corrections: (The following items were deleted from the chart) 23:47 23:46 Patient presents to the ED with 1 day of. rt rt
--- NOTE | 2022-11-28 21:58 | ER ---
Nurse's Notes [facility] Name: Elizabeth Rivas Age: 37 yrs Sex: Female : 1985 Arrival Date: 11/28/2022 Time: 19:47 Bed 16 Private MD: Diagnosis: Acute gastritis without bleeding Presentation: 11/28 19:52 Chief complaint: Patient states: I have had chest pain for 3 days. I am not sure if it kd3 is heart burn but i have been taking heart burn medicine and it isn't going away. Everything i eat i can feel it going down and it just hurts in my chest. Today the pain is worse so i just came in. Coronavirus screen: Vaccine status: Patient reports being unvaccinated. Ebola Screen: No symptoms or risks identified at this time. Initial Sepsis Screen: Does the patient meet any 2 criteria? No. Patient's initial sepsis screen is negative. Does the patient have a suspected source of infection? No. Patient's initial sepsis screen is negative. Risk Assessment: Do you want to hurt yourself or someone else? Patient reports no desire to harm self or others. Onset of symptoms was November 28, 2022. 19:52 Method Of Arrival: Ambulatory kd3 19:52 Acuity: MARGARITA 3 kd3 Triage Assessment: 19:54 General: Appears in no apparent distress. Behavior is calm, cooperative. Pain: kd3 Complains of pain in diaphragm, xiphoid area and mid-sternal area. Cardiovascular: Patient's skin is warm and dry. 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 - Social history:: Smoking status: Patient denies any tobacco usage or history of. - Family history:: not pertinent. Screenin:19 [facility] ED Fall Risk Assessment (Adult) History of falling in the last 3 months, jb4 including since admission No falls in past 3 months (0 pts) Confusion or Disorientation No (0 pts) Score/Fall Risk Level 0 - 2 = Low Risk Oriented to surroundings, Maintained a safe environment. Abuse screen: Denies threats or abuse. Nutritional screening: No deficits noted. Tuberculosis screening: No symptoms or risk factors identified. Assessment: 20:00 General: Appears in no apparent distress. uncomfortable, Behavior is calm, cooperative, jb4 appropriate for age. Pain: Complains of pain in chest Pain does not radiate. Pain currently is 8 out of 10 on a pain scale. Quality of pain is described as burning. Neuro: Level of Consciousness is awake, alert, obeys commands, Oriented to person, place, time, situation. Cardiovascular: Patient's skin is warm and dry. Respiratory: Airway is patent Respiratory effort is even, unlabored, Respiratory pattern is regular, symmetrical. GI: No signs and/or symptoms were reported involving the gastrointestinal system. : No signs and/or symptoms were reported regarding the genitourinary system. EENT: No signs and/or symptoms were reported regarding the EENT system. Derm: Skin is intact, Skin is pink, warm \T\ dry. Musculoskeletal: Circulation, motion, and sensation intact. Range of motion: intact in all extremities. 21:56 Reassessment: Patient appears in no apparent distress at this time. Patient and/or jb4 family updated on plan of care and expected duration. Pain level reassessed. Patient is alert, oriented x 3, equal unlabored respirations, skin warm/dry/pink. Patient states feeling better. Vital Signs: 19:49 BP 123 / 56; Pulse 72; Resp 16; Temp 98; Pulse Ox 100% on R/A; Weight 117.93 kg; Height kd3 5 ft. 2 in. (157.48 cm); Pain 8/10; 21:45 BP 108 / 56; Pulse 85; Resp 16; Pulse Ox 100% on R/A; jb4 19:49 Body Mass Index 47.55 (117.93 kg, 157.48 cm) kd3 ED Course: 19:47 Patient arrived in ED. as 19:54 Triage completed. kd3 19:54 Arm band placed on left wrist. kd3 20:00 Patient has correct armband on for positive identification. Bed in low position. Call jb4 light in reach. Side rails up X 1. Client placed on continuous cardiac and pulse oximetry monitoring. NIBP monitoring applied. 20:19 Jaiden Barraza MD is Attending Physician. rt 20:37 Lipase Sent. ls5 20:37 CMP Sent. ls5 20:37 CBC with Diff Sent. ls5 20:37 Inserted saline lock: 20 gauge in left antecubital area, using aseptic technique. Blood ls5 collected. 20:38 EKG done, by ED staff. ls5 22:18 Adryan Escobedo, RN is Primary Nurse. jb4 22:19 No provider procedures requiring assistance completed. IV discontinued, intact, jb4 bleeding controlled, No redness/swelling at site. Pressure dressing applied. Patient maintains SpO2 saturation greater than 95% on room air. Administered Medications: 20:43 Drug: GI Cocktail without - (Maalox Suspension 30 ml, Lidocaine Liquid 2 % 15 jb4 ml) Route: PO; Outcome: 21:57 Discharge ordered by MD. rt 22:19 Discharged to home ambulatory, with family. jb4 22:19 Condition: stable 22:19 Discharge instructions given to patient, Instructed on discharge instructions, follow up and referral plans. medication usage, Demonstrated understanding of instructions, follow-up care, medications, Prescriptions given X 2. 22:20 Patient left the ED. jb4 Signatures: Rebeka Zee James, RN RN jb4 Lydia Fierro, BIN RN kd3 Jaiden Barraza MD MD rt Adalberto Pacheco ls5
[2022-11-28 23:06] VITALS: TEMP 98; O2SAT 100
[2022-11-28 23:07] VITALS: BP 108/56
== END 2022-11-28 22:20 | disposition home or self-care (01) ==
LOC: ER 19:45
DX: K29.00 Acute gastritis without bleeding (principal)
CPT/HCPCS: 36415; 80053; 83690; 84484; 85025; 93005; 99284

== ENCOUNTER 2024-11-17 11:58 | Emergency (ER) | payer SELFPAY ==
--- OUTSIDE RECORDS SUMMARY | 2024-11-17 12:01 | XMS REPORT | Continuity of Care Document ---
Author Name Unknown Address [address] [place] [address] [facility] thconnect Address [address] [place] [address] Care Team Providers Care Holter Technician Name Role Phone Isabelle Gavin RN Attending Clinician Damon Cardona DO Attending Clinician Payers Payer Name Policy Type Policy Number Effective Date Expirati on Date Source Problems Condition Name Condition Details Condition Category Status Onset Date Resolution Date Last Treatment Date Treating Clinician Comments Source Acute post-opera tive pain Acute post-opera tive pain Disease Active 2014-10 00:00: 00 [facility] Abdominal pain, unspecifie d abdominal location Abdominal pain, unspecifie d abdominal location Disease Active 2014-10 00:00: 00 [facility] Acute calculous cholecysti tis Acute calculous cholecysti tis Disease Active 2014-10 00:00: 00 [facility] Allergies, Adverse Reactions, Alerts Allergy Name Allergy Type Status Severity Reaction(s) Onset Date Inactive Date Treating Clinician Comments Source NO KNOWN ALLERGIE S Drug Class Active [facility] Social History Social Habit Start Date Stop Date Quantity Comments Source Sex Assigned At [facility] Exposure to SARS-CoV-2 (event) Not sure [facility] Alcohol intake 2015-08-29 00:00:00 2015-08-29 00:00:00 [facility] Smoking Status Start Date Stop Date Source Former smoker 2015-08-29 00:00:00 2015-08-29 00:00:00 [facility] Medications Ordered Medication Name Filled Medication Name Start Date Stop Date Current Medication? Ordering Clinician Indication Dosage Frequency Signature (SIG) Comments Components Source benzonatate 100 mg capsule 12-06 00:00: 00 Yes [id number] 100mg Take 1 capsule by mouth 3 (three) times daily as needed for Cough. [facility] chlorphenir amine 4 mg tablet 12-06 00:00: 00 Yes [id number] 4mg Take 1 tablet by mouth every 6 (six) hours as needed for Allergies or Runny nose. [facility] multivitami n capsule 12-06 00:00: 00 Yes [id number] 1{capsu le} Take 1 capsule by mouth daily. [facility] calcium-mag nesium-zinc 333-133-8.3 mg Tab 12-06 00:00: 00 Yes [id number] Take as directed for daily dose. [facility] cyclobenzap rine (FLEXERIL) 10 mg tablet 2014-10 14:52: 59 Yes 10mg Take 10 mg by mouth 3 (three) times daily. [facility] acetaminoph en-codeine (TYLENOL #3) 300-30 mg tablet 2014-10 00:00: 00 Yes 1{tbl} Take 1 Tab by mouth every 4 (four) hours as needed for Pain (scale 4-6) or Pain (scale 7-10). [facility] ibuprofen (MOTRIN) 800 mg tablet 2014-10 00:00: 00 Yes 800mg Take 1 Tab by mouth every 6 (six) hours as needed for Pain (scale 1-3) or Pain (scale 4-6). [facility] omeprazole (PRILOSEC) 40 mg capsule 2014-10 00:00: 00 Yes 40mg Take 1 Cap by mouth daily. [facility] ondansetron (ZOFRAN, HYDROCHLORI DE,) 4 mg tablet 2014-10 00:00: 00 Yes 4mg Take 1 Tab by mouth every 8 (eight) hours as needed for Nausea and Vomiting (N/V). [facility] Vital Signs Vital Name Observation Time Observation Value Comments Kade mercado Systolic blood pressure 2020-12-06 14:56:00 131 mm[Hg] [facility] Diastolic blood pressure 2020-12-06 14:56:00 79 mm[Hg] [facility] Heart rate 2020-12-06 14:56:00 85 /[facility] Body temperature 2020-12-06 14:56:00 36.67 Caitlin [facility] Respiratory rate 2020-12-06 14:56:00 14 /min [facility] Body height 2020-12-06 14:56:00 157.5 cm [facility] Body weight 2020-12-06 14:56:00 122.471 kg [facility] BMI 2020-12-06 14:56:00 49.38 kg/m2 [facility] Oxygen saturation in Arterial blood by Pulse oximetry 2020-12-06 14:56:00 100 /min [facility] Systolic blood pressure 2020-12-06 14:56:00 131 mm[Hg] [facility] Diastolic blood pressure 2020-12-06 14:56:00 79 mm[Hg] [facility] Heart rate 2020-12-06 14:56:00 85 /min [facility] Body temperature 2020-12-06 14:56:00 36.67 Caitlin [facility] Respiratory rate 2020-12-06 14:56:00 14 /min [facility] Body height 2020-12-06 14:56:00 157.5 cm [facility] Body weight 2020-12-06 14:56:00 122.471 kg [facility] BMI 2020-12-06 14:56:00 49.38 kg/m2 [facility] Oxygen saturation in Arterial blood by Pulse oximetry 2020-12-06 14:56:00 100 /min [facility] Procedures Procedure Date / Time Performed Performing Clinicia n Source NOTICE OF PRIVACY PRACTICES 2020-12-06 14:48:27 Doctor Unassigned, [place] [facility] CONSENT/REFUSAL FOR DIAGNOSIS AND TREATMENT 2020-12-06 14:47:29 Doctor Unassigned, [place] [facility] Encounters Start Date/Time End Date/Time Encounter Type Admission Type Attending Clinicians Care Facility Care Department Encounter ID Source 2020-12-07 00:00:00 2020-12-07 00:00:[address] [facility] [id number] [facility] 2020-12-07 00:00:00 2020-12-07 00:00:00 Telephone [facility] [id number] 2020-12-06 08:57:00 2020-12-06 09:56:00 Emergency [facility] [id number] [facility] 2020-12-06 08:57:00 2020-12-06 09:56:00 Emergency [facility] [id number] 2020-12-06 08:48:00 2020-12-06 08:48:00 Emergency X [facility] ERT [id number] [facility]
--- NOTE | 2024-11-17 12:51 | RAD REPORT ---
EXAMINATION: TWO VIEW CHEST XR CLINICAL INDICATION: COUGH TECHNIQUE: 2 views of the chest was performed. COMPARISON: 04/10/2016 FINDINGS: Nonspecific peribronchial thickening without focal consolidation could represent a viral infection or reactive airway disease. The heart is normal in size. No displaced fractures evident. IMPRESSION: Findings could represent a viral infection or reactive airway disease.
--- NOTE | 2024-11-17 12:54 | EDPHYS ---
Physician Documentation [facility] Name: Elizabeth Rivas Age: 39 yrs Sex: Female : 1985 Arrival Date: 11/17/2024 Time: 11:58 Bed Treatment Private MD: ED Physician Pramod Galarza HPI: 11/17 12:08 This 39 yrs old Female presents to ER via Ambulatory with complaints of Cough. kb 12:08 Pt is a 39 year old female who presents for cough and rhinorrhea that started 6 days kb ago. Denies shortness of breath, fever, chills. States the cough has been getting worse so that is what prompted her visit today. . 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 - Infectious Disease History:: Denies. - Social history:: Smoking status: Patient denies any tobacco usage or history of. ROS: 12:08 Constitutional: As per HPI kb Exam: 12:08 Constitutional: This is a well developed, well nourished patient who is awake, alert, kb and in no acute distress. Head/Face: Normocephalic, atraumatic. ENT: Moist Mucous membranes Cardiovascular: Regular rate Respiratory: Respirations even and unlabored. No increased work of breathing. Talking in full sentences Skin: Warm, dry with normal turgor. Normal color. MS/ Extremity: Pulses equal, no cyanosis. Neurovascular intact. Full, normal range of motion. Neuro: Awake and alert, GCS 15, oriented to person, place, time, and situation. Vital Signs: 12:06 BP 157 / 86; Pulse 72; Resp 18; Temp 97.6(TE); Pulse Ox 100% on R/A; Weight 117.93 kg; ld1 Height 5 ft. 2 in. ; Pain 0/10; 12:06 Body Mass Index 47.55 (117.93 kg, 157.48 cm) ld1 12:06 Pain Scale: Adult ld1 MDM: 12:04 Medical Screening Exam initiated kb 12:09 Differential Diagnosis: Other flu, covid, uri, pneumonia. Data reviewed: vital signs, kb nurses notes. Test considered but Not performed: Labs: covid and flu tests considered but results would not change plan of care. Discussed with pt who elected not to have swabs done at this time. . 12:52 Counseling: I had a detailed discussion with the patient and/or guardian regarding the kb historical points, exam findings, and any diagnostic results supporting the discharge/admit diagnosis, radiology results, the need for outpatient follow up, a family practitioner, to return to the emergency department if symptoms worsen or persist or if there are any questions or concerns that arise at home. 11/17 12:08 Order name: Chest Pa And Lat (2 Views) XRAY; Complete Time: 12:52 kb Administered Medications: No medications were administered Disposition: 17:43 I was immediately available on-site in the Emergency Department for consultation in the ms3 care of the patient. Disposition Summary: 11/17/24 12:53 Discharge Ordered Notes: Location: Home kb Condition: Stable kb Diagnosis - Acute upper respiratory infection, unspecified kb Followup: kb - With: Emergency Department - When: As needed - Reason: Worsening of condition Followup: kb - With: Private Physician - When: 2 - 3 days - Reason: Recheck today's complaints, Continuance of care, Re-evaluation by your physician Discharge Instructions: - Discharge Summary Sheet kb - Upper Respiratory Infection, Adult kb Forms: - Work release form kb - Medication Reconciliation Form kb - Antibiotic Education kb - Prescription Opioid Use kb - Patient Portal Instructions kb - Leadership Thank You Letter kb Prescriptions: - Tessalon Perles 100 mg Oral Capsule - take 1 capsule ORAL route every 8 hours As needed; 15 capsule; Refills: 0, kb Product Selection Permitted Signatures: Dispatcher [employer] EDDanielle Tavarez, WORT EXTRACTOR-Doug LIAO-Pramod Broussard, DO ms3 Aidee Galraza, RN RN ld1
--- NOTE | 2024-11-17 12:54 | ER ---
Nurse's Notes [facility] Name: Elizabeth Rivas Age: 39 yrs Sex: Female : 1985 Arrival Date: 11/17/2024 Time: 11:58 Bed Treatment Private MD: Diagnosis: Acute upper respiratory infection, unspecified Presentation: 11/17 12:06 Chief complaint: Patient states: 6 days of coughing. Coronavirus screen: At this time, ld1 the client does not indicate any symptoms associated with coronavirus-19. Ebola Screen: No symptoms or risks identified at this time. Risk Assessment: Do you want to hurt yourself or someone else? Patient reports no desire to harm self or others. Onset of symptoms was November 17, 2024. 12:06 Method Of Arrival: Ambulatory ld1 12:06 Acuity: MARGARITA 4 ld1 13:07 Initial Sepsis Screen: Does the patient meet any 2 criteria? No. Patient's initial ll1 sepsis screen is negative. Does the patient have a suspected source of infection? No. Patient's initial sepsis screen is negative. Triage Assessment: 12:06 General: Appears in no apparent distress. comfortable, Behavior is calm, cooperative, ld1 appropriate for age. Pain: Denies pain. EENT: No signs and/or symptoms were reported regarding the EENT system. Neuro: Level of Consciousness is awake, alert, obeys commands, Oriented to person, place, time, situation. Cardiovascular: Capillary refill < 3 seconds Patient's skin is warm and dry. Respiratory: Airway is patent Respiratory effort is even, unlabored. GI: Abdomen is round non-distended. : No signs and/or symptoms were reported regarding the genitourinary system. Derm: No signs and/or symptoms reported regarding the dermatologic system. Musculoskeletal: No signs and/or symptoms reported regarding the musculoskeletal system. 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 - Infectious Disease History:: Denies. - Social history:: Smoking status: Patient denies any tobacco usage or history of. [facility]in:[facility] Assessment (Adult) History of falling in the last 3 months, ld1 including since admission No falls in past 3 months (0 pts) Confusion or Disorientation No (0 pts) Intoxicated or Sedated No (0 pts) Impaired Gait No (0 pts) Mobility Assist Device Used No (0 pt) Altered Elimination No (0 pt) Score/Fall Risk Level 0 - 2 = Low Risk Oriented to surroundings, Maintained a safe environment, Educated pt \T\ family on fall prevention, incl call for assistance when getting out of bed, Assessed \T\ reinforced patient's understanding of fall precautions, Provided non-skid footwear, Hourly rounding (assess needs \T\ fall precautionary measures) done, Used ambulatory aids as needed (educated on \T\ assisted with), Used gait belt as appropriate. Abuse screen: Denies threats or abuse. Denies injuries from another. Nutritional screening: No deficits noted. Tuberculosis screening: No symptoms or risk factors identified. Assessment: 12:07 Reassessment: See triage assessment. ld1 13:07 Reassessment: No changes from previously documented assessment. Patient and/or family ll1 updated on plan of care and expected duration. Pain level reassessed. Vital Signs: 12:06 BP 157 / 86; Pulse 72; Resp 18; Temp 97.6(TE); Pulse Ox 100% on R/A; Weight 117.93 kg; ld1 Height 5 ft. 2 in. ; Pain 0/10; 12:06 Body Mass Index 47.55 (117.93 kg, 157.48 cm) ld1 12:06 Pain Scale: Adult ld1 ED Course: 12:02 Patient arrived in ED. mr 12:04 Danielle Lisa FNP-C is PHCP. kb 12:04 Pramod Galarza DO is Attending Physician. kb 12:06 Triage completed. ld1 12:06 Arm band placed on right wrist. ld1 12:07 Patient has correct armband on for positive identification. Placed in gown. Bed in low ld1 position. Call light in reach. Side rails up X2. Pulse ox on. NIBP on. Door closed. Noise minimized. 12:07 No provider procedures requiring assistance completed. Patient did not have IV access ld1 during this emergency room visit. 12:10 Provided Education on: ER procedures and process. ll1 12:44 Chest Pa And Lat (2 Views) XRAY In Process Unspecified. EDMS Administered Medications: No medications were administered Medication: 12:07 VIS not applicable for this client. ld1 Outcome: 12:53 Discharge ordered by . mayra 13:07 Discharged to home ambulatory, ll1 13:07 Condition: stable 13:07 Discharge instructions given to patient, Instructed on discharge instructions, follow up and referral plans. medication usage, Demonstrated understanding of instructions, follow-up care, medications, Prescriptions given X 1, 13:08 Patient left the ED. ll1 Signatures: Dispatcher [employer] EDMS Danielle Lisa, FILTER PRESS PUMPER-C FILTER PRESS PUMPER-Ckb Renita Childress, Reg Reg mr Abhijeet Jaquez RN RN ll1 Aidee Galarza, BIN RN ld1
[2024-11-17 13:34] VITALS: BP 157/86; TEMP 97.6; O2SAT 100
== END 2024-11-17 13:08 | disposition home or self-care (01) ==
LOC: ER 11:58
DX: J06.9 Acute upper respiratory infection, unspecified (principal)
CPT/HCPCS: 71046; 99283